=== PATIENT | female | born 1950 | race Caucasian/White ===

== ENCOUNTER 2018-03-17 07:58 | Observation (INO) ==
[2018-03-17] MEDS ORDERED: Gentamicin/NS 80 mg Premix 100 ML IV.SIG ONE (08:50)
--- NOTE | 2018-03-17 08:50 | ED ---
HPI General Chief complaint: Extremity Injury, Lower Stated complaint: Transfer Time Seen by Provider: 03/17/18 08:29 Source: patient Mode of arrival: ambulatory Limitations: no limitations History of Present Illness HPI narrative: Patient is a 67 year old female who comes in as a transfer from [facility] for a partial amputation of he right third toe. She says she accidently closed her foot in a heavy door. XR performed at [facility] showed laceration and multiple fractures of the toe. She was transferred here to be seen by podiatry. She denies any other injuries. She says she is not having pain currently. Severity is moderate. Related Data Home Medications Medication Instructions Recorded Confirmed aspirin [Aspirin Childrens] 81 mg QAM 03/17/18 03/17/18 baclofen 10 mg PO BID 03/17/18 03/17/18 bupropion HCl [Wellbutrin XL] 300 mg PO QAM 03/17/18 03/17/18 carvedilol 6.25 mg PO BID 03/17/18 03/17/18 fluoxetine [Prozac] 40 mg PO DAILY 03/17/18 03/17/18 furosemide 40 mg PO DAILY 03/17/18 03/17/18 gabapentin 600 mg PO TID 03/17/18 03/17/18 insulin admin supplies [HumaPen 03/17/18 03/17/18 Luxura HD] losartan 50 mg PO DAILY 03/17/18 03/17/18 metformin 1,000 mg PO BID 03/17/18 03/17/18 potassium chloride 20 meq PO BID 03/17/18 03/17/18 Allergies Allergy/AdvReac Type Severity Reaction Status Date / Time azithromycin Allergy Severe Rash Verified 03/17/18 09:18 Fish Containing Products Allergy Severe Anaphylaxis Verified 03/17/18 09:18 iohexol Allergy Severe Hives Verified 03/17/18 09:18 povidone-iodine Allergy Severe Hives Verified 03/17/18 09:18 prochlorperazine Allergy Severe Anxiety Verified 03/17/18 09:18 lorazepam AdvReac Severe OPPOSITE Verified 03/17/18 09:18 EFFECT DYE Allergy Severe Hives Uncoded 03/17/18 09:28 Review of Systems ROS: all other systems reviewed are negative Constitutional Denies chills and Denies fever(s) ENT Denies dizziness Cardiovascular Denies chest pain and Denies dyspnea Respiratory Denies cough Gastrointestinal Denies nausea and Denies vomiting Musculoskeletal Reports deformity Integumentary/Breasts Reports wounds Neurologic Denies focal weakness and Denies numbness PMFSH Social History Social History Substance History: No History of Abuse Smoking Status: Current every day smoker Tobacco Type: Cigarettes How Often Do You Have a Drink Containing Alcohol: Never Recent Out of Country Travel within the Last 8 Weeks: No Exam Narrative Exam Narrative: GENERAL: Awake and alert, in no acute distress. SKIN: Avulsion of the tip of the right third toe, still attached anteriorly. HEAD: Atraumatic. Normocephalic. EYES: Pupils equal and round. No scleral icterus. ENT: Mucous membranes pink and moist. NECK: Trachea midline. No JVD. CARDIOVASCULAR: Regular rate and rhythm. No murmur appreciated. RESPIRATORY: No accessory muscle use. Clear to auscultation. Breath sounds equal bilaterally. MUSCULOSKELETAL: No obvious deformities. No clubbing. No cyanosis. No edema. NEUROLOGICAL: Awake and alert. No obvious cranial nerve deficits. Motor grossly within normal limits. Normal speech. PSYCHIATRIC: Appropriate mood and affect; insight and judgment normal. Course Initial Documented Vital Signs Temperature 98.2 F 03/17/18 08:09 Pulse Rate 97 H 03/17/18 08:09 Respiratory Rate 16 03/17/18 08:09 Blood Pressure 181/75 H 03/17/18 08:09 Pulse Oximetry 96 03/17/18 08:09 Last Documented Vital Signs Temperature 98.2 F 03/17/18 08:09 Pulse Rate 94 H 03/17/18 09:29 Respiratory Rate 16 03/17/18 09:29 Blood Pressure 165/96 H 03/17/18 09:29 Pulse Oximetry 94 L 03/17/18 09:29 Medical Decision Making MDM Narrative Medical decision making narrative: Patient is a 67-year-old female who comes in after closing her foot in the door. She was transferred here for podiatry. I spoke with Dr. Padgett who is aware of the patient and she will take her to the OR to wash out her toe. Patient was supposed to receive gentamicin before transport, but did not. This was ordered here. Patient says she does not need pain medicine at this time. Labs were done prior to transfer, show no acute abnormalities other than elevated glucose. Patient admitted to same-day surgery. Medical Screen Exam Complete: Yes Emergency Medical Condition: Yes Differential Diagnosis Differential Diagnosis: Fracture versus dislocation versus avulsion Medical Records Medical records reviewed: Yes I reviewed the patient's medical records. Discharge Plan Discharge Disposition Patient Disposition: 30 Still Patient Discharge Condition Condition: Stable Discharge Details Diagnosis: Avulsion of toe Physicians Team ED Provider: Rosy Singer Attending Provider: Rosy Padgett Discharge Interventions Interventions: Vital Signs Last Done: 03/17/18 09:29 Status ED Status: With Doctor
[2018-03-17] MEDS ORDERED: Bupivacaine PF 0.25% Inj 30 ML Vial ONE (12:09)
[2018-03-17] MEDS ORDERED: Chlorhexidine Gluconate 2% 1 Pack (2 Cloths) TOPICAL ONE (12:22)
[2018-03-17] MEDS ORDERED: Metoprolol Tartrate 25 MG Tablet PO ONE (12:22)
[2018-03-17] MEDS ORDERED: Sodium Chlor 0.9% Inj 500 ML IV.SIG SCH (13:00)
[2018-03-17] MEDS ORDERED: ceFAZolin 2 GM Premix Inj 2 GM/50 ML PIGGYBACK IV.SIG ONE (13:32)
[2018-03-17] MEDS ORDERED: Lidocaine PF 1% Inj 5 ML Syringe OTHER ONE (13:40)
--- NOTE | 2018-03-17 13:49 | P.CONPOD ---
History of Present Illness Service: Foot and Ankle Surgery Consult date: 03/17/18 Primary Care Provider: [facility] Chief Complaint: Right third digit open fracture History of Present Illness: Podiatry consulted for this 67 year old female who comes in as a transfer from [facility] for a partial amputation of he right third toe. She says she accidently closed her foot in a heavy door. She states she is a diabetic and a smoker. She follows with a nurse's assistant at the [place] and would like to follow up with her nurse's assistant once discharged. XR performed at [facility] showed laceration and comminuted fracture of distal phalanx. She denies any other injuries. She says she is not having pain currently, states she is neuropathic. Review of Systems Constitutional: Denies chills, Denies fatigue, Denies fever(s), Denies night sweats Cardiovascular: Denies chest pain, Denies shortness of breath PMFSH - History History Provided By: Patient - Tobacco History Tobacco Use In Past 30 Days: Yes Smoking Status: Current every day smoker Tobacco Type: Cigarettes - Alcohol History How Often Do You Have a Drink Containing Alcohol: Never - Substance Use History Substance History: No History of Abuse - Travel History Recent Travel Out of the Country Within the Last 8 Weeks: No - Immunization History Tetanus Immunization: <5 Years Medications and Allergies Active Medications: Active Medications Lactated Ringer's (Lr 1000 Ml Inj) 1,000 mls @ 30 mls/hr IV.SIG .Q24H NOHEMI Stop: 03/18/18 12:29 Sodium Chloride (Ns Inj) 500 mls @ 30 mls/hr IV.SIG .Q10H NOHEMI Allergies Allergy/AdvReac Type Severity Reaction Status Date / Time azithromycin Allergy Severe Rash Verified 03/17/18 09:18 Fish Containing Products Allergy Severe Anaphylaxis Verified 03/17/18 09:18 iohexol Allergy Severe Hives Verified 03/17/18 09:18 povidone-iodine Allergy Severe Hives Verified 03/17/18 09:18 prochlorperazine Allergy Severe Anxiety Verified 03/17/18 09:18 ketorolac [From Toradol] Allergy Rash Verified 03/17/18 12:36 lorazepam AdvReac Severe OPPOSITE Verified 03/17/18 09:18 EFFECT DYE Allergy Severe Hives Uncoded 03/17/18 09:28 Home Medications Medication Instructions Recorded Confirmed Type aspirin [Aspirin Childrens] 81 mg QAM 03/17/18 03/17/18 History baclofen 10 mg PO BID 03/17/18 03/17/18 History bupropion HCl [Wellbutrin XL] 300 mg PO QAM 03/17/18 03/17/18 History carvedilol 6.25 mg PO BID 03/17/18 03/17/18 History fluoxetine [Prozac] 40 mg PO DAILY 03/17/18 03/17/18 History furosemide 40 mg PO DAILY 03/17/18 03/17/18 History gabapentin 600 mg PO TID 03/17/18 03/17/18 History insulin admin supplies [HumaPen 03/17/18 03/17/18 History [facility]ura HD] losartan 50 mg PO DAILY 03/17/18 03/17/18 History metformin 1,000 mg PO BID 03/17/18 03/17/18 History potassium chloride 20 meq PO BID 03/17/18 03/17/18 History Physical Exam Vital signs: Vital Signs 03/17/18 08:09 03/17/18 09:29 03/17/18 11:34 Temperature 98.2 F Pulse Rate 97 H 94 H 95 H Respiratory Rate 16 16 16 Blood Pressure 181/75 H 165/96 H 175/76 H Pulse Oximetry 96 94 L 94 L Intake & Output 03/16/18 03/17/18 03/17/18 18:59 06:59 18:59 Intake Total 100 / 100 Balance 100 / 100 Weight 122.47 kg Intake: IV 100 / 100 Gentamicin/NS 80 mg Premix 100 100 / 100 ML @ 200 mls/hr IV.SIG ONCE ONE Rx#:[id number] Other: # Incontinent Voids 1 Narrative: Right third digit laceration noted circumferentially around the distal aspect of DIPJ of right third digit. Non palpable DP/PT pulses. MEMBER SERVICE SPECIALIST under 3 secs to digits x4. Decreased MEMBER SERVICE SPECIALIST to right third digit however no cyanosis noted. Decreased pinpoint sensation noted to right foot. Results - Labs Laboratory Results - last 24 hr 03/17/18 03/17/18 10:18 13:23 POC Glucose 318 H 300 H Assessment and Plan - Plan 67 year old with right third digit open distal phalanx comminuted fracture Patient examined and evaluated Understands all risks, benefits, complications, alternatives associated with procedure ABIs to be performed after surgical intervention Discharge dependent on ABIs, if abnormal patient will need a vascular consult Weight bearing as tolerated in surgical shoe Discharge on oral abx therapy Patient to follow up within 1 week of discharge
[2018-03-17] MEDS ORDERED: fentaNYL Citrate Inj 100 MCG/2 ML Ampul ONE (14:49)
[2018-03-17] MEDS ORDERED: Misc Info for Pharmacy OTHER STA (14:53)
--- NOTE | 2018-03-17 15:18 | P.PCN ---
Date of procedure: 03/17/18 Pre-op diagnosis: Right third digit distal phalanx open fracture with laceration Post-op diagnosis: same Procedure: Debridement and irrigation of right third digit open fracture with laceration repair Anesthesia: AGNES Surgeon: Rosy Padgett Estimated blood loss (mL): 5 Pathology: other (wound culture right third digit) Condition: stable Disposition: PACU (with VSS and NVS intact to the right foot)
--- NOTE | 2018-03-17 16:32 | ECHRPT ---
EXAM DATE: 03/17/2018 12:00 AM EDT AGE/SEX: 67 years / Female INDICATIONS: AVULSION OF THE TIP OF THE RIGHT TOE CLINICAL DATA: This is the patient's initial encounter. Patient reports that signs and symptoms have been present for 4 - 6 days and indicates a pain score of 5/10. MEDICAL/SURGICAL HISTORY: . UNKNOWN . UNKNOWN COMPARISON: No prior exams available for comparison. TECHNIQUE: Four-cuff ankle and brachial pressures were obtained. Pulse cuff waveform tracings of the ankles were recorded, and ankle-brachial indices were calculated. PRESSURES (mmHg): Brachial (arm) : RIGHT: 122, LEFT: 120 Ankle : RIGHT: 76, LEFT: 82 WILLIAMS : RIGHT: 0.62, LEFT: 0.67 TBI : RIGHT: 0.53, LEFT: 0.45 FINDINGS: Pulsed-Cuff Waveform: Blunted monophasic tracings bilaterally Other: None. CONCLUSION: Moderately compromised lower extremity circulation bilaterally Electronically signed by: Marv Buck MD 03/17/2018 4:31 PM EDT
--- NOTE | 2018-03-17 17:29 | MR ---
cc: Rosy Padgett DPM DATE: 03/17/2018 SURGEON: Rosy Padgett DPM WILDLIFE BIOSTATION RESEARCH ECOLOGIST: None. PREOPERATIVE DIAGNOSIS: Right third digit open distal phalanx fracture. POSTOPERATIVE DIAGNOSIS: Right third digit open distal phalanx fracture. PROCEDURE: Right third digit open fracture debridement and irrigation with laceration repair. ANESTHESIA: General. HEMOSTASIS: None. ANESTHESIA: IV sedation. HEMOSTASIS: None. ESTIMATED BLOOD LOSS: 5 mL. MATERIALS: 3-0 Monocryl, 3-0 Prolene. INJECTABLES: 10 mL of 0.5% Marcaine plain infiltrated about the right foot. COMPLICATIONS: None. INDICATIONS FOR PROCEDURE: The patient is a 67-year-old female who got her toe caught in between a door and her wheelchair. She said she is not in a lot of pain secondary to neuropathy. She is a smoker and a diabetic. The patient states she follows closely with the [facility] in [facility]. She denies any nausea, vomiting, fevers or chills. She states she reported immediately to the emergency department when she noted her toe was partially amputated. She understands the risks, benefits, and complications associated with proceeding with intervention. DETAILS OF PROCEDURE: The patient was brought to the operating room, placed on the operating table in supine position. IV sedation was then induced. Right foot was prepped and draped in the usual sterile fashion. Attention was directed to the right third digit where 3 liters of normal saline with gentamicin was utilized to irrigate the wound. Cultures were taken post-irrigation. 3-0 Monocryl was utilized to reapproximate subcutaneous tissue. 2-0 Prolene was utilized to reapproximate the skin. Xeroform, 4 x 4's, Riley and Coban were then applied to the right foot. The patient tolerated the procedure and anesthesia well. She remained weightbearing as tolerated to the right foot. We will obtain ABIs prior to discharge. The patient did have nonpalpable pulses. The patient is not to be discharged if ABIs are abnormal. ANGEL Ayala/dia , 04:28 PM , 04:35 PM
--- NOTE | 2018-03-17 17:56 | XR ---
EXAM DATE: 03/17/2018 12:00 AM EDT AGE/SEX: 67 years / Female INDICATIONS: Post op right foot surgery. CLINICAL DATA: This is the patient's initial encounter. Patient reports that signs and symptoms have been present for 1 day and indicates a pain score of 4/10. MEDICAL/SURGICAL HISTORY: None. None. COMPARISON: No prior exams available for comparison. FINDINGS: The tuft of the third toe distal phalanx appears fractured. There are no other focal bony abnormaliti es identified. The mineralization is normal. Articulations appear intact. The hindfoot and visualized ankle are grossly unremarkable. CONCLUSION: Deformity of the third toe tuft as described. Electronically signed by: Marv Buck MD 03/17/2018 5:55 PM EDT
[2018-03-17] MEDS ORDERED: Insulin NovoLIN Regular Correctional Sugar Inj ONE (17:57)
[2018-03-17] MEDS ORDERED: Dextrose 50% in Water 50 ML Vial IV.PUSH PRN (20:22)
--- NOTE | 2018-03-17 20:57 | P.HPIM ---
History of Present Illness Service: [facility] Primary Care Physician: [facility] Chief Complaint: Right third digit open fracture History of Present Illness: 67 y/o female with DM, CHF, neuropathy, COPD, breast cancer, depression and hypertension presented to the ED after having a right third digit toe injury. Patient was taken to the OR for a right third digit open fracture by podiatry. She states she was in her wheelchair today and when she opened a door her toe got caught between the door and the wheelchair. She fever, chills. She does complain of some shortness of breath, she currently is still a and uses BiPAP and nebulizers at home. Is also wheelchair-bound and has been for 20 years. Inpatient Certification: I certify that the inpatient services were ordered in accordance with Medicare regulations governing the order. This includes certification that hospital inpatient services are reasonable and necessary and in the case of services not specified as inpatient-only under 42 CFR 419.22(n), that they are appropriately provided as inpatient services in accordance to with the 2-midnight benchmark under 43 CFR 412.3(e) Estimated Total Length of Stay (Days): 2 Plans for Post Hospital Care: Not yet determined Review of Systems All other systems reviewed negative except as stated [facility] - History History Provided By: Patient - Medical History Medical History: Medical History (Last Reviewed 03/18/18 @ 01:56 by JILLIAN Lopez) CHF (congestive heart failure) COPD (chronic obstructive pulmonary disease) Diabetes H/O: hysterectomy Hypertension Sleep apnea - Surgical History Surgical History: Surgical History (Last Reviewed 03/18/18 @ 01:56 by JILLIAN Lopez) Benign tumor H/O heart artery stent History of spinal fusion Hx of appendectomy Hx of cholecystectomy Hx of lumpectomy - Family History Family History: Family History (Last Reviewed 03/18/18 @ 01:57 by JILLIAN Lopez) Father Heart disease - Social History I have reviewed the patient's Social History: Yes - Tobacco History Tobacco Use In Past 30 Days: Yes Smoking Status: Current every day smoker Tobacco Type: Cigarettes - Alcohol History How Often Do You Have a Drink Containing Alcohol: Never - Substance Use History Substance History: No History of Abuse - Travel History Recent Travel Out of the Country Within the Last 8 Weeks: No - Immunization History Tetanus Immunization: <5 Years Medications and Allergies Active Medications: Active Medications Baclofen (Lioresal) 10 mg PO BID [facility] Bupropion HCl (Wellbutrin Sr) 300 mg PO DAILY [facility] Carvedilol (Coreg) 6.25 mg PO BID [facility] Dextrose (D50w Vial) 50 ml IV.PUSH UNSCH PRN PRN Reason: PER HYPOGLYCEMIA PROTOCOL Fluoxetine HCl (Prozac) 40 mg PO DAILY NOHEMI Furosemide (Lasix) 40 mg PO DAILY [facility] Gabapentin (Neurontin) 600 mg PO TID NOHEMI Glucagon (Glucagon Inj) 1 mg OTHER PRN PRN PRN Reason: for Hypoglycemia Protocol Lactated Ringer's (Lr 1000 Ml Inj) 1,000 mls @ 30 mls/hr IV.SIG .Q24H NOHEMI Stop: 03/18/18 12:29 Sodium Chloride (Ns Inj) 500 mls @ 30 mls/hr IV.SIG .Q10H NOHEMI Insulin Aspart (Novolog Insulin Correctional Sugar Inj) 0 unit SQ ACHS NOHEMI; Protocol Lactulose (Lactulose Liq) 30 ml PO DAILY PRN PRN Reason: SEVERE CONSITIPATION Losartan Potassium (Cozaar) 50 mg PO DAILY [facility] Metformin HCl (Glucophage) 1,000 mg PO BIDPC NOHEMI Ondansetron HCl (Zofran Odt) 4 mg PO Q6H PRN PRN Reason: NAUSEA OR VOMITING Potassium Chloride (K-Dur) 20 meq PO BID NOHEMI Sodium Chloride (Ns Flush) 2 ml IV.FLUSH BID NOHEMI Sodium Chloride (Ns Flush) 2 ml IV.FLUSH PRN PRN PRN Reason: FLUSH AFTER USING IV ACCESS Allergies Allergy/AdvReac Type Severity Reaction Status Date / Time azithromycin Allergy Severe Rash Verified 03/17/18 09:18 Fish Containing Products Allergy Severe Anaphylaxis Verified 03/17/18 09:18 iohexol Allergy Severe Hives Verified 03/17/18 09:18 povidone-iodine Allergy Severe Hives Verified 03/17/18 09:18 prochlorperazine Allergy Severe Anxiety Verified 03/17/18 09:18 ketorolac [From Toradol] Allergy Rash Verified 03/17/18 12:36 lorazepam AdvReac Severe OPPOSITE Verified 03/17/18 09:18 EFFECT DYE Allergy Severe Hives Uncoded 03/17/18 09:28 Home Medications Medication Instructions Recorded Confirmed Type aspirin [Aspirin Childrens] 81 mg QAM 03/17/18 03/17/18 History baclofen 10 mg PO BID 03/17/18 03/17/18 History bupropion HCl [Wellbutrin XL] 300 mg PO QAM 03/17/18 03/17/18 History carvedilol 6.25 mg PO BID 03/17/18 03/17/18 History fluoxetine [Prozac] 40 mg PO DAILY 03/17/18 03/17/18 History furosemide 40 mg PO DAILY 03/17/18 03/17/18 History gabapentin 600 mg PO TID 03/17/18 03/17/18 History insulin admin supplies [HumaPen 03/17/18 03/17/18 History [facility]ura [facility]] losartan 50 mg PO DAILY 03/17/18 03/17/18 History metformin 1,000 mg PO BID 03/17/18 03/17/18 History potassium chloride 20 meq PO BID 03/17/18 03/17/18 History Exam Vital signs: Vital Signs 03/17/18 08:09 03/17/18 09:29 03/17/18 11:34 Temperature 98.2 F Pulse Rate 97 H 94 H 95 H Respiratory Rate 16 16 16 Blood Pressure 181/75 H 165/96 H 175/76 H Pulse Oximetry 96 94 L 94 L 03/17/18 20:00 Temperature 97.4 F L Pulse Rate 88 Respiratory Rate 15 Blood Pressure 188/87 H Pulse Oximetry 94 L Intake & Output 03/17/18 03/17/18 03/18/18 06:59 18:59 06:59 Intake Total 700 / 700 Output Total 5 / 5 Balance 695 / 695 Weight 122.47 kg Intake: IV 100 / 100 Gentamicin/NS 80 mg Premix 100 100 / 100 ML @ 200 mls/hr IV.SIG ONCE ONE Rx#:[id number] Anesthesia Amount 600 / 600 Output: Estimated Blood Loss 5 / 5 Other: # Incontinent Voids 1 Narrative: GENERAL: This is a well-nourished, well-developed patient, in no apparent distress. SKIN: right third toe wrapped in gauze, minimal drainage EYES: Pupils equal round and reactive, no scleral edema or drainage CARDIOVASCULAR: Regular rate and rhythm without murmurs, gallops, or rubs. Diminished pedal pulses. RESPIRATORY: Clear to auscultation. Breath sounds equal bilaterally. No wheezes , rales, or rhonchi. GASTROINTESTINAL: Abdomen soft, non-tender, nondistended. Normal active bowel sounds MUSCULOSKELETAL: Extremities without clubbing, cyanosis, or edema. NEURO: Alert & Oriented x4 to person, place, time, situation. Moves all ext x4 Results - Imaging Impressions Extremity Arterial Study 03/17/18 00:00 CONCLUSION: Moderately compromised lower extremity circulation bilaterally Foot X-Ray 03/17/18 00:00 CONCLUSION: Deformity of the third toe tuft as described. Caprini VTE Risk Assessment Caprini VTE Risk Assessment: Moderate/High Risk (score >= 2) Caprini Risk Assessment Model: Point Value = 1 Point Value = 2 Point Value = 3 Point Value = 5 Age 41-60 Minor surgery BMI > 25 kg/m2 Swollen legs Varicose veins or History of unexplained or recurrent spontaneous Oral contraceptives or hormone replacement Sepsis (< 1 month) Serious lung disease, including pneumonia (< 1 month) Abnormal pulmonary function Acute myocardial infarction Congestive heart failure (< 1 month) History of inflammatory bowel disease Medical patient at bed rest Age 61-74 Arthroscopic surgery Major open surgery (> 45 min) Laparoscopic surgery (> 45 min) Malignancy Confined to bed (> 72 hours) Immobilizing plaster cast Central venous access Age >= 75 History of VTE Family history of VTE Factor V Leiden Prothrombin [id number] Lupus anticoagulant Anticardiolipin antibodies Elevated serum homocysteine Heparin-induced thrombocytopenia Other congenital or acquired thrombophilia Stroke (< 1 month) Elective arthroplasty Hip, pelvis, or leg fracture Acute spinal cord injury (< 1 month) Prophylaxis Regimen: Total Risk Factor Score Risk Level Prophylaxis Regimen 0-1 Low Early ambulation 2 Moderate Order ONE of the following: *Sequential Compression Device (SCD) *Heparin 5000 units SQ BID 3-4 Higher Order ONE of the following medications: *Heparin 5000 units SQ TID *Enoxaparin/Lovenox 40 mg SQ daily (WT < 150 kg, CrCl > 30 mL/min) *Enoxaparin/Lovenox 30 mg SQ daily (WT < 150 kg, CrCl > 10-29 mL/min) *Enoxaparin/Lovenox 30 mg SQ BID (WT < 150 kg, CrCl > 30 mL/min) AND/OR *Sequential Compression Device (SCD) 5 or more Highest Order ONE of the following medications: *Heparin 5000 units SQ TID (Preferred with Epidurals) *Enoxaparin/Lovenox 40 mg SQ daily (WT < 150 kg, CrCl > 30 mL/min) *Enoxaparin/Lovenox 30 mg SQ daily (WT < 150 kg, CrCl > 10-29 mL/min) *Enoxaparin/Lovenox 30 mg SQ BID (WT < 150 kg, CrCl > 30 mL/min) AND *Sequential Compression Device (SCD) Assessment and Plan - Plan 67 y/o female with DM, CHF, neuropathy, COPD, breast cancer, depression and hypertension presented to the ED after having a right third digit toe injury. Right third digit toe injury Foot x-ray shows a third toe distal phalanx appears fracture -Podiatry was consulted by ER physician and patient was taken to the OR for I&D of right third digit open fracture and laceration repair, recommends postop boot , in 1 week -Vascular surgery consulted due to week pedal pulses -ABIs ordered -Gabapentin for pain Diabetes, chronic -Resume home metformin -Accu-Cheks with sliding scale insulin -Diabetic diet COPD, chronic -DuoNeb scheduled and as needed -Bipap At night Hypertension, chronic -Resume home medications Cozaar and Coreg, monitor vitals Depression, chronic -Resume home medications fluoxetine and Wellbutrin CHF, chronic -Resume Lasix -Watch for fluid overload Tobacco abuse -Encouraged to quit, cessation counseling DVT prophylaxis: SCDs Discussed Condition With: Patient and RN
[2018-03-17] MEDS: Baclofen 10 MG Tablet PO SCH (21:27)
[2018-03-17] MEDS: Carvedilol 6.25 MG Tablet PO SCH (21:27)
[2018-03-17] MEDS: Insulin NovoLOG Aspart Correctional Sugar Inj SQ SCH (21:34)
[2018-03-18] MEDS: Insulin NovoLOG Aspart Correctional Sugar Inj SQ SCH ×4 (09:39→20:39)
[2018-03-18] MEDS: Carvedilol 6.25 MG Tablet PO SCH ×2 (09:40→20:30)
[2018-03-18] MEDS: Baclofen 10 MG Tablet PO SCH ×2 (09:40→20:31)
[2018-03-18] MEDS: buPROPion 150 MG 12 HR Tablet PO SCH (09:41)
[2018-03-18] MEDS: Gabapentin 300 MG Capsule PO SCH ×3 (09:41→16:59)
[2018-03-18] MEDS: Furosemide 40 MG Tablet PO SCH (09:41)
[2018-03-18] MEDS: FLUoxetine 20 MG Capsule PO SCH (09:41)
[2018-03-18] MEDS: Insulin Detemir Inj 1,000 UNIT/10 ML Vial SQ SCH ×2 (09:43→20:37)
--- NOTE | 2018-03-18 11:50 | P.PNIM ---
Subjective Interval history: Patient reports she wants to go home soon. Complained of more back pain which is chronic than her left foot pain. She states that she is usually bedbound and gets around with a wheelchair. She does have chronic neuropathy. Physical Exam Vital signs: Vital Signs 03/17/18 20:00 03/18/18 00:00 03/18/18 00:24 Temperature 97.4 F L 97.3 F L Pulse Rate 88 90 86 Respiratory Rate 15 16 23 Blood Pressure 188/87 H 198/89 H Pulse Oximetry 94 L 94 L 03/18/18 01:10 03/18/18 04:00 03/18/18 07:40 Temperature 97.4 F L Pulse Rate 80 96 H Respiratory Rate 15 20 Blood Pressure 183/79 H Pulse Oximetry 98 94 L 03/18/18 08:00 Temperature 97.7 F Pulse Rate 94 H Respiratory Rate 19 Blood Pressure 201/90 H Pulse Oximetry 93 L Intake & Output 03/17/18 03/18/18 03/18/18 18:59 06:59 18:59 Intake Total 700 / 700 650 / 650 Output Total 5 / 5 1200 / 1200 Balance 695 / 695 -550 / -550 Weight 122.47 kg 122.5 kg Intake: IV 100 / 100 50 / 50 Gentamicin/NS 80 mg Premix 100 100 / 100 ML @ 200 mls/hr IV.SIG ONCE ONE Rx#:[id number] Ancef 2 GM Premix Inj 2 gm In 50 / 50 50 ml @ 0 mls/hr IV.SIG .STK- MED ONE Rx#:[id number] Oral 600 / 600 Anesthesia Amount 600 / 600 Output: Urine 1200 / 1200 Estimated Blood Loss 5 / 5 Other: # Incontinent Voids 1 Date of Last Bowel Movement 03/17/18 # Bowel Movements 2 Narrative: GENERAL: This is a well-nourished, well-developed patient, in no apparent distress. EYES: Pupils equal round and reactive, no scleral edema or drainage CARDIOVASCULAR: Regular rate and rhythm without murmurs, gallops, or rubs. Diminished pedal pulses bilaterally. RESPIRATORY: Clear to auscultation. Breath sounds equal bilaterally. No wheezes , rales, or rhonchi. GASTROINTESTINAL: Abdomen soft, non-tender, nondistended. Normal active bowel sounds MUSCULOSKELETAL: Right foot bandage clean dry and intact NEURO: Alert & Oriented x4 to person, place, time, situation. Moves all ext x4 Results - Labs Laboratory Results - last 24 hr 03/17/18 03/17/18 03/17/18 13:23 17:52 21:34 POC Glucose 300 H 279 H 280 H 03/18/18 08:35 POC Glucose 301 H Microbiology 03/17/18 14:12 Wound - Toe Gram Stain - Final - Imaging Impressions Extremity Arterial Study 03/17/18 00:00 CONCLUSION: Moderately compromised lower extremity circulation bilaterally Foot X-Ray 03/17/18 00:00 CONCLUSION: Deformity of the third toe tuft as described. Assessment and Plan - Assessment (1) Morbid obesity with BMI of 45.0-49.9, adult Code(s): E66.01 - Morbid (severe) obesity due to excess calories; Z68.42 - Body mass index (BMI) 45.0-49.9, adult Status: Chronic - Plan 67 y/o female with DM, CHF, neuropathy, COPD, breast cancer, depression and hypertension presented to the ED after having a right third digit toe injury. Right open third distal phalanx toe fracture status post operative day #1 right third digit open fracture debridement and irrigation with laceration repair with Dr. Padgett, podiatry -Vascular surgery consulted due to week pedal pulses with patient likely having underlying peripheral arterial disease -ABIs ordered -Gabapentin for pain Diabetes mellitus type II, chronic, uncontrolled likely with neuropathy -Resume home metformin -Accu-Cheks with sliding scale insulin -Diabetic diet Start basal insulin Levemir for better blood sugar control. Sliding scale insulin COPD, chronicnot in acute exacerbation -DuoNeb scheduled and as needed History of sleep apnea -Bipap At night Hypertension, chronic, uncontrolled -Resume home medications Cozaar and Coreg, Increase home Cozaar dose from 50-100 mg today. Depression, chronic -Resume home medications fluoxetine and Wellbutrin Chronic diastolic CHF, chronic, EF in August 2014 showed 55% -Resume Lasix, Coreg -Watch for fluid overload Tobacco abuse -Encouraged to quit, cessation counseling Morbid obesity with BMI greater than 45 -weight loss counseling. DVT prophylaxis: Lovenox.
--- NOTE | 2018-03-18 12:02 | P.DCO ---
- Diagnosis (1) Open toe fracture Status: Acute - Physical Therapy Order: Evaluate and treat - Home Health Nursing Order: Nursing assessment with vital signs - Case Management Consult Yes - Certification I have seen patient Sharonda Grubbs on 03/18/18. My clinical findings support the need for the requested home health care services because: Limited mobility due to disease progression I certify that my clinical findings support that this patient is homebound because: Post-op weakness (1) Open toe fracture Qualifiers: Encounter type: initial encounter Phalanx: distal Fracture alignment: nondisplaced Laterality: right
--- NOTE | 2018-03-18 13:08 | P.PNVS ---
Subjective Subjective/Hospital Course: Referral received last night full consult to follow today Thanks J Objective Vital Signs / I&O: Vital Signs 03/17/18 20:00 03/18/18 00:00 03/18/18 00:24 Temperature 97.4 F L 97.3 F L Pulse Rate 88 90 86 Respiratory Rate 15 16 23 Blood Pressure 188/87 H 198/89 H Pulse Oximetry 94 L 94 L 03/18/18 01:10 03/18/18 04:00 03/18/18 07:40 Temperature 97.4 F L Pulse Rate 80 96 H Respiratory Rate 15 20 Blood Pressure 183/79 H Pulse Oximetry 98 94 L 03/18/18 08:00 Temperature 97.7 F Pulse Rate 94 H Respiratory Rate 19 Blood Pressure 201/90 H Pulse Oximetry 93 L Intake & Output 03/17/18 03/18/18 03/18/18 18:59 06:59 18:59 Intake Total 700 / 700 650 / 650 Output Total 5 / 5 1200 / 1200 Balance 695 / 695 -550 / -550 Weight 122.47 kg 122.5 kg Intake: IV 100 / 100 50 / 50 Gentamicin/NS 80 mg Premix 100 100 / 100 ML @ 200 mls/hr IV.SIG ONCE ONE Rx#:[id number] Ancef 2 GM Premix Inj 2 gm In 50 / 50 50 ml @ 0 mls/hr IV.SIG .STK- MED ONE Rx#:[id number] Oral 600 / 600 Anesthesia Amount 600 / 600 Output: Urine 1200 / 1200 Estimated Blood Loss 5 / 5 Other: # Incontinent Voids 1 Date of Last Bowel Movement 03/17/18 # Bowel Movements 2 Laboratory Results - last 24 hr 03/17/18 03/17/18 03/17/18 13:23 17:52 21:34 POC Glucose 300 H 279 H 280 H 03/18/18 03/18/18 08:35 12:41 POC Glucose 301 H 337 H Microbiology 03/17/18 14:12 Gram Stain - Final Wound - Toe Wound Culture - Preliminary No growth in 24 hours Impressions Extremity Arterial Study 03/17/18 00:00 CONCLUSION: Moderately compromised lower extremity circulation bilaterally Foot X-Ray 03/17/18 00:00 CONCLUSION: Deformity of the third toe tuft as described.
--- NOTE | 2018-03-18 17:00 | MB ---
cc: Valerio Bailey MD DATE: 03/18/2018 CONSULTING PHYSICIAN: Valerio Bailey MD, vascular surgery REASON FOR CONSULTATION: Gangrene and infection with fractures of the right third toe, questionable issues with blood supply to the leg. HISTORY OF PRESENT ILLNESS: This is a 67-year-old lady with a complex past medical history, somehow broke the third digit of the right foot. This got infected and the patient underwent amputation of the same by Dr. Padgett. In the process of the workup, patient was found to have multiple medical problems from before. Question arises about the ability for this to heal without any vascular intervention. PAST MEDICAL HISTORY: Severe COPD, CHF, diabetes mellitus, hypertension and spinal stenosis with inability to walk for the last 20 years. PAST SURGICAL HISTORY: Hysterectomy, toe amputation, breast surgery for breast cancer, coronary artery angioplasty and stenting, appendectomy and left lumpectomy. SOCIAL HISTORY: The patient smokes 1-2 packs a day. Most of her adult life. Does not drink. The patient is unable to walk for the last 20 years due to severe spinal stenosis and is essentially wheelchair bound. PHYSICAL EXAMINATION: GENERAL: Reveals 67-year-old lady appearing much older than actual age. HEENT: Normocephalic. No trauma to the head. Pupils are equally reactive. Extraocular muscles intact. The patient has a large pannus overlying the chin. NECK: Short and stocky. Good carotid pulses. No bruits. CHEST: Bilateral breath sounds, decreased over both lung lovell with severe advanced COPD, barrel chest and atrophy of the musculature with pulmonary cachexia of the chest. ABDOMEN: Obese, soft, active bowel sounds. No rebound, no guarding, no masses. EXTREMITIES: Somewhat atrophic. Patient has no palpable femoral pulses, weak popliteal by doppler. Distally patient has dorsalis pedis and posterior tibial by Doppler only. Feet are slightly pale; however, there is no acute sign of vascular deficit. BACK: Not examined because I cannot turn the patient and she cannot turn on her own. NEUROLOGIC: The patient moves lower extremities; however, is unable to walk due to spinal stenosis, functionally she is paraplegic, although she has sensation in the feet. IMPRESSION AND RECOMMENDATIONS: I reviewed laboratory and diagnostic procedure. The patient has warm feet, although pulses are not palpable distally. This is probably associated with moderate distal vascular disease, and significant inflow disease considering the patient has no palpable pulses in the groin. Patient likely has very severe stenosis of the iliac arteries or even may be Leriche syndrome I believe CTA with runoff is an appropriate study at this time to assess the baseline and see if the patient can be helped in any way. Patient is not a candidate for any major vascular reconstruction, but might be a candidate for simple balloon angioplasty and stenting. I will continue to follow the patient with you. MD ANNIE Villarreal/ct , 04:03 PM , 04:14 PM MTDD
[2018-03-18 19:08] LABS: Hematocrit 45.9 % (35.0-46.0); Hemoglobin 14.9 gm/dL (11.6-15.3); Mean Corpuscular HGB Conc 32.4 % (32.0-36.0); Mean Corpuscular Hemoglobin 26.2 pg (27.0-34.0); Mean Corpuscular Volume 80.7 fL (80.0-100.0); Mean Platelet Volume 9.6 fL (7.0-11.0); Platelet Count 264 th/mm3 (150-450); Red Blood Count 5.69 mil/mm3 (4.00-5.30); Red Cell Distribution Width 15.7 % (11.6-17.2); White Blood Count 15.1 th/mm3 (4.0-11.0)
[2018-03-18 19:30] LABS: Carbon Dioxide 25.7 meq/L (21.0-32.0); Potassium 3.9 meq/L (3.5-5.1)
--- NOTE | 2018-03-18 21:21 | P.PNPOD ---
Subjective Interval history: Patient seen bedside post op day 1. Resting comfortably with no issues or complaints. Deneis calf pain to right calf. Denies any N,V,F,Ch. Physical Exam Vital signs: Vital Signs 03/18/18 00:00 03/18/18 00:24 03/18/18 01:10 Temperature 97.3 F L Pulse Rate 90 86 Respiratory Rate 16 23 Blood Pressure 198/89 H Pulse Oximetry 94 L 98 03/18/18 04:00 03/18/18 07:40 03/18/18 08:00 Temperature 97.4 F L 97.7 F Pulse Rate 80 96 H 94 H Respiratory Rate 15 20 19 Blood Pressure 183/79 H 201/90 H Pulse Oximetry 94 L 93 L 03/18/18 11:00 03/18/18 12:00 03/18/18 16:00 Temperature 97.9 F 98.0 F Pulse Rate 95 H 95 H 98 H Respiratory Rate 20 18 18 Blood Pressure 164/83 H 188/87 H Pulse Oximetry 94 L 95 03/18/18 18:57 Temperature Pulse Rate 101 H Respiratory Rate 18 Blood Pressure Pulse Oximetry Intake & Output 03/18/18 03/18/18 03/19/18 06:59 18:59 06:59 Intake Total 650 / 650 1000 / 1000 Output Total 1200 / 1200 Balance -550 / -550 1000 / 1000 Weight 122.5 kg Intake: IV 50 / 50 Ancef 2 GM Premix Inj 2 gm In 50 / 50 50 ml @ 0 mls/hr IV.SIG .STK- MED ONE Rx#:[id number] Oral 600 / 600 1000 / 1000 Output: Urine 1200 / 1200 Other: # Voids 6 Date of Last Bowel Movement 03/17/18 # Bowel Movements 2 3 Narrative: [employer] MANAGER under 5 secs to right third digit. [employer] MANAGER under 3 secs to right foot digits 1,2 ,4,5. Non palpable pulses DP/PT. Delayed and sluggish refill time to right third digit, however no cyanosis noted or ischemia noted. Medications and Allergies Active Medications: Active Medications Albuterol (Duoneb Neb (Prn)) 1 ampul NEB Q2HR NEB PRN PRN Reason: SHORTNESS OF BREATH Last Admin: 03/18/18 00:20 Dose: 1 ampul Albuterol (Duoneb Neb (Anup)) 1 ampul NEB Q6HR WHILE AWAKE NEB ANUP Last Admin: 03/18/18 18:55 Dose: 1 ampul Baclofen (Lioresal) 10 mg PO BID [facility] Last Admin: 03/18/18 20:31 Dose: 10 mg Bupropion HCl (Wellbutrin Sr) 300 mg PO DAILY [facility] Last Admin: 03/18/18 09:41 Dose: 300 mg Carvedilol (Coreg) 6.25 mg PO BID [facility] Last Admin: 03/18/18 20:30 Dose: 6.25 mg Clonidine HCl (Catapres) 0.1 mg PO Q6H PRN PRN Reason: SEE LABEL COMMENTS Last Admin: 03/18/18 17:10 Dose: 0.1 mg Dextrose (D50w Vial) 50 ml IV.PUSH UNSCH PRN PRN Reason: PER HYPOGLYCEMIA PROTOCOL Fluoxetine HCl (Prozac) 40 mg PO DAILY [facility] Last Admin: 03/18/18 09:41 Dose: 40 mg Furosemide (Lasix) 40 mg PO DAILY [facility] Last Admin: 03/18/18 09:41 Dose: 40 mg Gabapentin (Neurontin) 600 mg PO TID [facility] Last Admin: 03/18/18 16:59 Dose: 600 mg Glucagon (Glucagon Inj) 1 mg OTHER PRN PRN PRN Reason: for Hypoglycemia Protocol Sodium Chloride (Ns Inj) 500 mls @ 30 mls/hr IV.SIG .Q10H [facility] Last Admin: 03/17/18 21:29 Dose: Not Given Insulin Aspart (Novolog Insulin Correctional Sugar Inj) 0 unit SQ ACHS [facility]; Protocol Last Admin: 03/18/18 20:39 Dose: 12 unit Insulin Detemir (Levemir Inj) 15 unit SQ BID [facility]; Protocol Last Admin: 03/18/18 20:37 Dose: 15 unit Lactulose (Lactulose Liq) 30 ml PO DAILY PRN PRN Reason: SEVERE CONSITIPATION Losartan Potassium (Cozaar) 100 mg PO DAILY [facility] Last Admin: 03/18/18 16:59 Dose: 1,000 mg Ondansetron HCl (Zofran Odt) 4 mg PO Q6H PRN PRN Reason: NAUSEA OR VOMITING Potassium Chloride (K-Dur) 20 meq PO BID [facility] Last Admin: 03/18/18 20:30 Dose: 20 meq Sodium Chloride (Ns Flush) 2 ml IV.FLUSH BID [facility] Last Admin: 03/18/18 20:48 Dose: 2 ml Sodium Chloride (Ns Flush) 2 ml IV.FLUSH PRN PRN PRN Reason: FLUSH AFTER USING IV ACCESS Allergies Allergy/AdvReac Type Severity Reaction Status Date / Time azithromycin Allergy Severe Rash Verified 03/17/18 09:18 Fish Containing Products Allergy Severe Anaphylaxis Verified 03/17/18 09:18 iohexol Allergy Severe Hives Verified 03/17/18 09:18 povidone-iodine Allergy Severe Hives Verified 03/17/18 09:18 prochlorperazine Allergy Severe Anxiety Verified 03/17/18 09:18 ketorolac [From Toradol] Allergy Rash Verified 03/17/18 12:36 lorazepam AdvReac Severe OPPOSITE Verified 03/17/18 09:18 EFFECT DYE Allergy Severe Hives Uncoded 03/17/18 09:28 Home Medications Medication Instructions Recorded Confirmed Type aspirin [Aspirin Childrens] 81 mg QAM 03/17/18 03/17/18 History baclofen 10 mg PO BID 03/17/18 03/17/18 History bupropion HCl [Wellbutrin XL] 300 mg PO QAM 03/17/18 03/17/18 History carvedilol 6.25 mg PO BID 03/17/18 03/17/18 History fluoxetine [Prozac] 40 mg PO DAILY 03/17/18 03/17/18 History furosemide 40 mg PO DAILY 03/17/18 03/17/18 History gabapentin 600 mg PO TID 03/17/18 03/17/18 History insulin admin supplies [HumaPen 03/17/18 03/17/18 History Luxura HD] losartan 50 mg PO DAILY 03/17/18 03/17/18 History metformin 1,000 mg PO BID 03/17/18 03/17/18 History potassium chloride 20 meq PO BID 03/17/18 03/17/18 History Results - Labs CBC & Chem 7: 03/18/18 18:20 03/18/18 18:20 Laboratory Results - last 24 hr 03/17/18 03/18/18 03/18/18 21:34 08:35 12:41 WBC RBC Hgb Hct MCV MCH MCHC RDW Plt Count MPV Sodium Potassium Chloride Carbon Dioxide Anion Gap BUN Creatinine Estimated GFR POC Glucose 280 H 301 H 337 H Random Glucose Calcium 03/18/18 03/18/18 03/18/18 17:02 18:20 18:20 WBC 15.1 H RBC 5.69 H Hgb 14.9 Hct 45.9 MCV 80.7 MCH 26.2 L MCHC 32.4 RDW 15.7 Plt Count 264 MPV 9.6 Sodium 132 L Potassium 3.9 Chloride 96 L Carbon Dioxide 25.7 Anion Gap 10 BUN 11 Creatinine 0.89 Estimated GFR 63 L POC Glucose 291 H Random Glucose 268 H Calcium 9.0 03/18/18 20:31 WBC RBC Hgb Hct MCV MCH MCHC RDW Plt Count MPV Sodium Potassium Chloride Carbon Dioxide Anion Gap BUN Creatinine Estimated GFR POC Glucose 390 H Random Glucose Calcium Microbiology 03/17/18 14:12 Wound - Toe Fungal Smear - Final No fungal elements seen 03/17/18 14:12 Wound - Toe Gram Stain - Final 03/17/18 14:12 Wound - Toe Wound Culture - Preliminary No growth in 24 hours Assessment and Plan - Plan 67 year old with right third digit open distal phalanx comminuted fracture Patient examined and evaluated ABIs abnormal and vascualr surgery is evaluating patient Weight bearing as tolerated in surgical shoe Discharge on oral abx therapy Patient to follow up within 1 week of discharge Will continue to monitor vascular status of right third toe
[2018-03-19 07:31] LABS: Baso # (Auto) 0.1 th/mm3 (0.0-0.2); Baso % (Auto) 0.6 % (0.0-2.0); Eos % (Auto) 0.2 % (0.0-4.0); Hematocrit 45.3 % (35.0-46.0); Hemoglobin 14.9 gm/dL (11.6-15.3); Lymph # (Auto) 1.1 th/mm3 (1.0-4.8); Lymph % (Auto) 9.2 % (9.0-44.0); Mean Corpuscular HGB Conc 32.9 % (32.0-36.0); Mean Corpuscular Hemoglobin 26.6 pg (27.0-34.0); Mean Corpuscular Volume 80.8 fL (80.0-100.0); Mean Platelet Volume 9.7 fL (7.0-11.0); Mono # (Auto) 0.3 th/mm3 (0.0-0.9); Mono % (Auto) 2.3 % (0.0-8.0); Neut # (Auto) 10.1 th/mm3 (1.8-7.7); Neut % (Auto) 87.7 % (16.0-70.0); Platelet Count 230 th/mm3 (150-450); Red Blood Count 5.61 mil/mm3 (4.00-5.30); Red Cell Distribution Width 15.9 % (11.6-17.2); White Blood Count 11.5 th/mm3 (4.0-11.0)
[2018-03-19 07:43] LABS: Calcium 9.1 mg/dL (8.5-10.1); Carbon Dioxide 22.6 meq/L (21.0-32.0); Potassium 5.1 meq/L (3.5-5.1)
[2018-03-19] MEDS: Insulin NovoLOG Aspart Correctional Sugar Inj SQ SCH ×4 (08:00→22:15)
[2018-03-19] MEDS: FLUoxetine 20 MG Capsule PO SCH (08:09)
[2018-03-19] MEDS: Carvedilol 6.25 MG Tablet PO SCH ×2 (08:09→22:14)
[2018-03-19] MEDS: Gabapentin 300 MG Capsule PO SCH ×4 (08:10→22:14)
[2018-03-19] MEDS: buPROPion 150 MG 12 HR Tablet PO SCH (08:10)
[2018-03-19] MEDS: Furosemide 40 MG Tablet PO SCH (08:10)
[2018-03-19] MEDS: Baclofen 10 MG Tablet PO SCH ×2 (10:00→22:14)
--- NOTE | 2018-03-19 10:48 | CT ---
EXAM DATE: 03/19/2018 8:41 AM EDT AGE/SEX: 67 years / Female INDICATIONS: Peripheral vascular disease to both legs. Gangrene toe. CLINICAL DATA: This is the patient's initial encounter. Patient reports that signs and symptoms have been present for 1 day and indicates a pain score of 5/10. MEDICAL/SURGICAL HISTORY: Chronic obstructive pulmonary disease. Congestive heart failure. Hypert ension. Diabetes. Appendectomy. Cholecystectomy. Hysterectomy. Heart artery stent. RADIATION DOSE: 40.25 CTDI (mGy) COMPARISON: [facility] [place], [employer] ANKLE BRACHIAL INDEX, 03/17/2018. . TECHNIQUE: Volumetric scanning was performed using a multi-row detector CT scanner during bolus infu robbie of 95 ml Omnipaque 350 (iohexol) nonionic water-soluble contrast as a single exam dose. The d cyndy was post processed with a variety of visualization algorithms including full volume maximum inten sity projection, multi-planar sliding thin slab reformation, curved planar reformation, and surface r endering techniques. Using automated exposure control and adjustment of the mA and/or kV according t o patient size, radiation dose was kept as low as reasonably achievable to obtain optimal diagnostic quality images. DICOM format image data is available electronically for review and comparison. FINDINGS: Abdominal Aorta: Atherosclerotic calcification throughout the infrarenal abdominal aorta without aneu rysmal disease. Single bilateral renal arteries are patent. Mesenteric vessels are patent. The distal aorta is heavily calcified and occludes at the bifurcation Pelvis: Common iliac arteries are occluded bilaterally. Collateral reconstitution of the external lorena acs via the hypogastrics. Right Lower Extremity: Profunda and SFA are patent with some mild irregularity of the SFA. Popliteal is patent and trifurcation with three-vessel runoff Left Lower Extremity: Profunda and SFA are patent. Mild irregularity at the adductor hiatus but the p opliteal is patent and the trifurcation. Trifurcation vessels can be identified in the mid calf but a re not very well-seen distally probably due to the limited inflow. I believe all 3 trifurcation vesse ls are patent, however Miscellaneous: Patient is status post cholecystectomy. There is prior abdominal surgery with surgical butch identified at the rectus abdominis aponeurosis. A left para midline anterior abdominal wall hernia is identified just above the umbilicus. This measures 5.7 cm in diameter and only contains fat . 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 Multiple injection granulomata in the buttocks bilaterally. There is findings of prior lumbosacral surgery with a probable bony fus ion mass in the posterior elements leftward CONCLUSION: 1. Patient's symptoms appear to be due to a Leriche type syndrome with occlusion of the distal abdom inal aorta just above the bifurcation extending into the common iliac arteries bilaterally. 2. There is collateral reconstitution of the external iliac arteries bilaterally. Except for some mi ld atherosclerotic irregularity in the SFA/popliteal, the runoff vessels are otherwise patent with 3 vessels bilaterally. 3. (Midline anterior abdominal wall hernia measures 5.7 cm in diameter and only contains fat. This i s adjacent to a prior surgical incision 6. With metallic butch in the region of the rectus abdomini s aponeurosis. 4. Prior back surgery with multilevel resection of the spinous processes in the lower lumbar and upp er sacral spine. Probable bony fusion mass leftward in the posterior elements at L4-5. Patient is sta tus post cholecystectomy. Electronically signed by: Rick Arellano MD 03/19/2018 10:46 AM EDT
--- NOTE | 2018-03-19 11:05 | P.DS ---
Date of admission: 03/17/18 18:38 Primary care physician: [facility] Brief History from admission: 67 y/o female with DM, CHF, neuropathy, COPD, breast cancer, depression and hypertension presented to the ED after having a right third digit toe injury. Patient was taken to the OR for a right third digit open fracture by podiatry. She states she was in her wheelchair today and when she opened a door her toe got caught between the door and the wheelchair. She fever, chills. She does complain of some shortness of breath, she currently is still a and uses BiPAP and nebulizers at home. Is also wheelchair-bound and has been for 20 years. Patient update on day of discharge: Patient states no pain. Wants to go home. No abdominal pain. Tolerating diet. DS: Diagnosis - Discharge Diagnosis (1) Open toe fracture Status: Acute Diagnosis: Principal (2) Morbid obesity with BMI of 45.0-49.9, adult Status: Chronic Diagnosis: Secondary (3) Diabetes mellitus type 2 in obese Status: Chronic Diagnosis: Secondary DS: Summary Hospital Course: These are the medical issues addressed during this hospitalization: 67 y/o female with DM, CHF, neuropathy, COPD, breast cancer, depression and hypertension presented to the ED after having a right third digit toe injury. Right open third distal phalanx toe fracture status post operative day #2 right third digit open fracture debridement and irrigation with laceration repair with Dr. Padgett, podiatry Outpatient antibiotics per podiatry. -Vascular surgery consulted due to weak pedal pulses with patient likely having underlying peripheral arterial disease -ABIs ordered CTA runoff results revealed occlusion of the distal abdominal aorta just above the verification into the common iliac arteries bilaterally and there is collateral reconstitution of the external iliac arteries bilaterally. Patient to follow-up with primary care physician at the [facility]. Continue home aspirin. -Gabapentin for pain Diabetes mellitus type II, chronic, uncontrolled likely with neuropathy -Resume home metformin -Accu-Cheks with sliding scale insulin -Diabetic diet Start basal insulin Levemir for better blood sugar control. Sliding scale insulin COPD, chronicnot in acute exacerbation -DuoNeb scheduled and as needed History of sleep apnea -Bipap At night Hypertension, chronic, uncontrolled -Resume home medications Cozaar and Coreg, Increase home Cozaar dose from 50-100 mg today. New prescription will be given on discharge. Depression, chronic -Resume home medications fluoxetine and Wellbutrin Chronic diastolic CHF, chronic, EF in August 2014 showed 55% -Resume Lasix, Coreg -Watch for fluid overload Tobacco abuse -Encouraged to quit, cessation counseling Morbid obesity with BMI greater than 45 -weight loss counseling. DVT prophylaxis: Lovenox. - Time Spent with Patient Total time spent providing and/or coordinating discharge services: Less than 30 minutes - Quality: VTE Deep Vein Thrombosis/Pulmonary Embolism Present on Admission: No Exam Vital signs: Vital Signs 03/18/18 11:00 03/18/18 12:00 03/18/18 16:00 Temperature 97.9 F 98.0 F Pulse Rate 95 H 95 H 98 H Respiratory Rate 20 18 18 Blood Pressure 164/83 H 188/87 H Pulse Oximetry 94 L 95 03/18/18 18:57 03/18/18 20:00 03/18/18 21:30 Temperature 97.6 F Pulse Rate 101 H 100 H Respiratory Rate 18 17 Blood Pressure 141/66 H Pulse Oximetry 95 94 L 03/19/18 00:00 03/19/18 00:42 03/19/18 03:47 Temperature 97.9 F Pulse Rate 88 Respiratory Rate 16 Blood Pressure 125/64 Pulse Oximetry 94 L 93 L 97 03/19/18 07:51 03/19/18 08:25 Temperature 97.8 F Pulse Rate 96 H 90 Respiratory Rate 17 12 Blood Pressure 158/72 H Pulse Oximetry 98 Intake & Output 03/18/18 03/19/18 03/19/18 18:59 06:59 18:59 Intake Total 1000 / 1000 500 / 500 Output Total 600 / 600 Balance 1000 / 1000 -100 / -100 Weight 122.2 kg Intake: Oral 1000 / 1000 500 / 500 Output: Urine 600 / 600 Other: # Voids 6 1 # Bowel Movements 3 1 Narrative: GENERAL: This is a well-nourished, well-developed patient, in no apparent distress. EYES: Pupils equal round and reactive, no scleral edema or drainage CARDIOVASCULAR: Regular rate and rhythm without murmurs, gallops, or rubs. Diminished pedal pulses bilaterally. RESPIRATORY: Clear to auscultation. Breath sounds equal bilaterally. No wheezes , rales, or rhonchi. GASTROINTESTINAL: Abdomen soft, non-tender, nondistended. Normal active bowel sounds MUSCULOSKELETAL: Right foot bandage clean dry and intact NEURO: Alert & Oriented x4 to person, place, time, situation. Moves all ext x4 Results Procedures completed during hospitalization: right third digit open fracture debridement and irrigation with laceration repair with Dr. Padgett Labs on day of discharge: Labs from last 24 hours 03/19/18 03/19/18 03/18/18 07:00 07:00 20:31 WBC 11.5 H RBC 5.61 H Hgb 14.9 Hct 45.3 MCV 80.8 MCH 26.6 L MCHC 32.9 RDW 15.9 Plt Count 230 MPV 9.7 Neut % (Auto) 87.7 H Lymph % (Auto) 9.2 [place] % (Auto) 2.3 Eos % (Auto) 0.2 Baso % (Auto) 0.6 Neut # (Auto) 10.1 H Lymph # (Auto) 1.1 [place] # (Auto) 0.3 Eos # (Auto) 0.0 Baso # (Auto) 0.1 WBC Differential . Differential Comment Auto diff final Sodium 132 L Potassium 5.1 D Chloride 97 L Carbon Dioxide 22.6 Anion Gap 12 BUN 21 H Creatinine 0.97 Estimated GFR 57 L POC Glucose 390 H Random Glucose 390 H D Calcium 9.1 03/18/18 03/18/18 03/18/18 18:20 18:20 17:02 WBC 15.1 H RBC 5.69 H Hgb 14.9 Hct 45.9 MCV 80.7 MCH 26.2 L MCHC 32.4 RDW 15.7 Plt Count 264 MPV 9.6 Neut % (Auto) Lymph % (Auto) [place] % (Auto) Eos % (Auto) Baso % (Auto) Neut # (Auto) Lymph # (Auto) [place] # (Auto) Eos # (Auto) Baso # (Auto) WBC Differential Differential Comment Sodium 132 L Potassium 3.9 Chloride 96 L Carbon Dioxide 25.7 Anion Gap 10 BUN 11 Creatinine 0.89 Estimated GFR 63 L POC Glucose 291 H Random Glucose 268 H Calcium 9.0 03/18/18 12:41 WBC RBC Hgb Hct MCV MCH MCHC RDW Plt Count MPV Neut % (Auto) Lymph % (Auto) [place] % (Auto) Eos % (Auto) Baso % (Auto) Neut # (Auto) Lymph # (Auto) [place] # (Auto) Eos # (Auto) Baso # (Auto) WBC Differential Differential Comment Sodium Potassium Chloride Carbon Dioxide Anion Gap BUN Creatinine Estimated GFR POC Glucose 337 H Random Glucose Calcium Preliminary micro results at discharge 03/17/18 14:12 Wound Culture - Preliminary Wound - Toe No growth in 24 hours - Impressions ITS Impressions Extremity Arterial Study 03/17/18 00:00 CONCLUSION: Moderately compromised lower extremity circulation bilaterally Foot X-Ray 03/17/18 00:00 CONCLUSION: Deformity of the third toe tuft as described. Aorta w/Runoff CTA 03/19/18 16:09 CONCLUSION: 1. 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 2. There is collateral reconstitution of the external iliac arteries bilaterally. Except for some mild atherosclerotic irregularity in the SFA/ popliteal, the runoff vessels are otherwise patent with 3 vessels bilaterally. 3. (Midline anterior abdominal wall hernia measures 5.7 cm in diameter and only contains fat. This is adjacent to a prior surgical incision 6. With metallic butch in the region of the rectus abdominis aponeurosis. 4. Prior back surgery with multilevel resection of the spinous processes in the lower lumbar and upper sacral spine. Probable bony fusion mass leftward in the posterior elements at L4-5. Patient is status post cholecystectomy. Discharge Plan - Discharge Disposition Patient Disposition: W/Home Health Service - Discharge Condition Condition: Stable - Discharge Order Discharge Orders: Discharge Order (Routine); Ordered 03/19/18 Ordered By: Marily De La Rosa - Physicians Team Attending Provider: Marily De La Rosa Other Providers: Rosy Padgett DPM ; Valerio Bailey MD
[2018-03-19] MEDS: Insulin Detemir Inj 1,000 UNIT/10 ML Vial SQ SCH ×2 (12:11→22:15)
--- NOTE | 2018-03-19 14:07 | P.PNVS ---
Subjective Subjective/Hospital Course: Somewhat atrophic extremities. Patient has no palpable femoral pulses. Distally patient has dorsalis pedis and posterior tibial by Doppler only. Feet are slightly pale; however, there is no acute sign of vascular deficit. 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 In the best case scenario, Leriche syndrome is treated by either aortobifemoral bypass or axillobifemoral bypass. Patient is clearly not a candidate for aortobifemoral bypass in the face of her comorbidities and current status but theoretically would be a candidate for axillobifemoral bypass if necessary. At this point I believe the best course of therapy is to allow the third toe amputation to heal and if patient does have ischemic and necrotic changes of the foot then we may resort to surgery but otherwise we should avoid that because even then this is a significant operation for this unfortunate lady I would like to see patient in about a month in my office and see how she does Objective Vital Signs / I&O: Vital Signs 03/18/18 16:00 03/18/18 18:57 03/18/18 20:00 Temperature 98.0 F 97.6 F Pulse Rate 98 H 101 H 100 H Respiratory Rate 18 18 17 Blood Pressure 188/87 H 141/66 H Pulse Oximetry 95 95 03/18/18 21:30 03/19/18 00:00 03/19/18 00:42 Temperature 97.9 F Pulse Rate 88 Respiratory Rate 16 Blood Pressure 125/64 Pulse Oximetry 94 L 94 L 93 L 03/19/18 03:47 03/19/18 07:51 03/19/18 08:25 Temperature 97.8 F Pulse Rate 96 H 90 Respiratory Rate 17 12 Blood Pressure 158/72 H Pulse Oximetry 97 98 03/19/18 12:00 03/19/18 13:28 Temperature 97.4 F L Pulse Rate 88 85 Respiratory Rate 18 12 Blood Pressure 151/68 H Pulse Oximetry 94 L Intake & Output 03/18/18 03/19/18 03/19/18 18:59 06:59 18:59 Intake Total 1000 / 1000 500 / 500 Output Total 600 / 600 Balance 1000 / 1000 -100 / -100 Weight 122.2 kg Intake: Oral 1000 / 1000 500 / 500 Output: Urine 600 / 600 Other: # Voids 6 1 # Bowel Movements 3 1 Laboratory Results - last 24 hr 03/18/18 03/18/18 03/18/18 17:02 18:20 18:20 WBC 15.1 H RBC 5.69 H Hgb 14.9 Hct 45.9 MCV 80.7 MCH 26.2 L MCHC 32.4 RDW 15.7 Plt Count 264 MPV 9.6 Neut % (Auto) Lymph % (Auto) [place] % (Auto) Eos % (Auto) Baso % (Auto) Neut # (Auto) Lymph # (Auto) [place] # (Auto) Eos # (Auto) Baso # (Auto) WBC Differential Differential Comment Sodium 132 L Potassium 3.9 Chloride 96 L Carbon Dioxide 25.7 Anion Gap 10 BUN 11 Creatinine 0.89 Estimated GFR 63 L POC Glucose 291 H Random Glucose 268 H Calcium 9.0 03/18/18 03/19/18 03/19/18 20:31 07:00 07:00 WBC 11.5 H RBC 5.61 H Hgb 14.9 Hct 45.3 MCV 80.8 MCH 26.6 L MCHC 32.9 RDW 15.9 Plt Count 230 MPV 9.7 Neut % (Auto) 87.7 H Lymph % (Auto) 9.2 [place] % (Auto) 2.3 Eos % (Auto) 0.2 Baso % (Auto) 0.6 Neut # (Auto) 10.1 H Lymph # (Auto) 1.1 [place] # (Auto) 0.3 Eos # (Auto) 0.0 Baso # (Auto) 0.1 WBC Differential . Differential Comment Auto diff final Sodium 132 L Potassium 5.1 D Chloride 97 L Carbon Dioxide 22.6 Anion Gap 12 BUN 21 H Creatinine 0.97 Estimated GFR 57 L POC Glucose 390 H Random Glucose 390 H D Calcium 9.1 03/19/18 03/19/18 11:58 12:01 WBC RBC Hgb Hct MCV MCH MCHC RDW Plt Count MPV Neut % (Auto) Lymph % (Auto) [place] % (Auto) Eos % (Auto) Baso % (Auto) Neut # (Auto) Lymph # (Auto) [place] # (Auto) Eos # (Auto) Baso # (Auto) WBC Differential Differential Comment Sodium Potassium Chloride Carbon Dioxide Anion Gap BUN Creatinine Estimated GFR POC Glucose 591 H* 577 H* Random Glucose Calcium Microbiology 03/17/18 14:12 Acid Fast Bacilli Smear - Final Wound - Toe No acid fast bacilli seen 03/17/18 14:12 Gram Stain - Final Wound - Toe Wound Culture - Preliminary No growth in 48 hours 03/17/18 14:12 Fungal Smear - Final Wound - Toe No fungal elements seen Impressions Extremity Arterial Study 03/17/18 00:00 CONCLUSION: Moderately compromised lower extremity circulation bilaterally Foot X-Ray 03/17/18 00:00 CONCLUSION: Deformity of the third toe tuft as described. Aorta w/Runoff CTA 03/19/18 16:09 CONCLUSION: 1. 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 2. There is collateral reconstitution of the external iliac arteries bilaterally. Except for some mild atherosclerotic irregularity in the SFA/ popliteal, the runoff vessels are otherwise patent with 3 vessels bilaterally. 3. (Midline anterior abdominal wall hernia measures 5.7 cm in diameter and only contains fat. This is adjacent to a prior surgical incision 6. With metallic butch in the region of the rectus abdominis aponeurosis. 4. Prior back surgery with multilevel resection of the spinous processes in the lower lumbar and upper sacral spine. Probable bony fusion mass leftward in the posterior elements at L4-5. Patient is status post cholecystectomy.
--- NOTE | 2018-03-19 14:43 | P.PNPOD ---
Subjective Interval history: s/p right third toe distal toe traumatic amputation. Pt denies any pain. She is hoping for d/c today. She denies any n/v/f/h/c/sob. Physical Exam Vital signs: Vital Signs 03/18/18 16:00 03/18/18 18:57 03/18/18 20:00 Temperature 98.0 F 97.6 F Pulse Rate 98 H 101 H 100 H Respiratory Rate 18 18 17 Blood Pressure 188/87 H 141/66 H Pulse Oximetry 95 95 03/18/18 21:30 03/19/18 00:00 03/19/18 00:42 Temperature 97.9 F Pulse Rate 88 Respiratory Rate 16 Blood Pressure 125/64 Pulse Oximetry 94 L 94 L 93 L 03/19/18 03:47 03/19/18 07:51 03/19/18 08:25 Temperature 97.8 F Pulse Rate 96 H 90 Respiratory Rate 17 12 Blood Pressure 158/72 H Pulse Oximetry 97 98 03/19/18 12:00 03/19/18 13:28 Temperature 97.4 F L Pulse Rate 88 85 Respiratory Rate 18 12 Blood Pressure 151/68 H Pulse Oximetry 94 L Intake & Output 03/18/18 03/19/18 03/19/18 18:59 06:59 18:59 Intake Total 1000 / 1000 500 / 500 Output Total 600 / 600 Balance 1000 / 1000 -100 / -100 Weight 122.2 kg Intake: Oral 1000 / 1000 500 / 500 Output: Urine 600 / 600 Other: # Voids 6 1 # Bowel Movements 3 1 Narrative: Right third digit with all sutures intact, no drainage, bluish discoloration to the the tip of the toe but blanchable. Medications and Allergies Active Medications: Active Medications Albuterol (Duoneb Neb (Prn)) 1 ampul NEB Q2HR NEB PRN PRN Reason: SHORTNESS OF BREATH Last Admin: 03/18/18 00:20 Dose: 1 ampul Albuterol (Duoneb Neb (Anup)) 1 ampul NEB Q6HR WHILE AWAKE NEB ANUP Last Admin: 03/19/18 13:23 Dose: 1 ampul Baclofen (Lioresal) 10 mg PO BID ANUP Last Admin: 03/19/18 10:00 Dose: 10 mg Bupropion HCl (Wellbutrin Sr) 300 mg PO DAILY ANUP Last Admin: 03/19/18 08:10 Dose: 300 mg Carvedilol (Coreg) 6.25 mg PO BID [facility] Last Admin: 03/19/18 08:09 Dose: 6.25 mg Clonidine HCl (Catapres) 0.1 mg PO Q6H PRN PRN Reason: SEE LABEL COMMENTS Last Admin: 03/18/18 17:10 Dose: 0.1 mg Dextrose (D50w Vial) 50 ml IV.PUSH UNSCH PRN PRN Reason: PER HYPOGLYCEMIA PROTOCOL Fluoxetine HCl (Prozac) 40 mg PO DAILY [facility] Last Admin: 03/19/18 08:09 Dose: 40 mg Furosemide (Lasix) 40 mg PO DAILY [facility] Last Admin: 03/19/18 08:10 Dose: 40 mg Gabapentin (Neurontin) 600 mg PO TID [facility] Last Admin: 03/19/18 08:10 Dose: 600 mg Glucagon (Glucagon Inj) 1 mg OTHER PRN PRN PRN Reason: for Hypoglycemia Protocol Sodium Chloride (Ns Inj) 500 mls @ 30 mls/hr IV.SIG .Q10H [facility] Last Admin: 03/17/18 21:29 Dose: Not Given Insulin Aspart (Novolog Insulin Correctional Sugar Inj) 0 unit SQ ACHS [facility]; Protocol Last Admin: 03/19/18 12:40 Dose: 20 unit Insulin Detemir (Levemir Inj) 15 unit SQ BID [facility]; Protocol Last Admin: 03/19/18 12:11 Dose: 15 unit Lactobacillus Acidophilus (Lactinex) 1 tab PO BID [facility] Lactulose (Lactulose Liq) 30 ml PO DAILY PRN PRN Reason: SEVERE CONSITIPATION Losartan Potassium (Cozaar) 100 mg PO DAILY [facility] Last Admin: 03/19/18 08:10 Dose: 100 mg Metformin HCl (Glucophage) 1,000 mg PO BIDPC [facility] Last Admin: 03/18/18 16:59 Dose: 1,000 mg Ondansetron HCl (Zofran Odt) 4 mg PO Q6H PRN PRN Reason: NAUSEA OR VOMITING Potassium Chloride (K-Dur) 20 meq PO BID [facility] Last Admin: 03/19/18 08:09 Dose: 20 meq Sodium Chloride (Ns Flush) 2 ml IV.FLUSH BID [facility] Last Admin: 03/19/18 12:12 Dose: 2 ml Sodium Chloride (Ns Flush) 2 ml IV.FLUSH PRN PRN PRN Reason: FLUSH AFTER USING IV ACCESS Allergies Allergy/AdvReac Type Severity Reaction Status Date / Time azithromycin Allergy Severe Rash Verified 03/17/18 09:18 Fish Containing Products Allergy Severe Anaphylaxis Verified 03/17/18 09:18 iohexol Allergy Severe Hives Verified 03/17/18 09:18 povidone-iodine Allergy Severe Hives Verified 03/17/18 09:18 prochlorperazine Allergy Severe Anxiety Verified 03/17/18 09:18 ketorolac [From Toradol] Allergy Rash Verified 03/17/18 12:36 lorazepam AdvReac Severe OPPOSITE Verified 03/17/18 09:18 EFFECT DYE Allergy Severe Hives Uncoded 03/17/18 09:28 Home Medications Medication Instructions Recorded Confirmed Type aspirin [Aspirin Childrens] 81 mg QAM 03/17/18 03/17/18 History baclofen 10 mg PO BID 03/17/18 03/17/18 History bupropion HCl [Wellbutrin XL] 300 mg PO QAM 03/17/18 03/17/18 History carvedilol 6.25 mg PO BID 03/17/18 03/17/18 History fluoxetine [Prozac] 40 mg PO DAILY 03/17/18 03/17/18 History furosemide 40 mg PO DAILY 03/17/18 03/17/18 History gabapentin 600 mg PO TID 03/17/18 03/17/18 History insulin admin supplies [HumaPen 03/17/18 03/17/18 History Luxura HD] losartan 50 mg PO DAILY 03/17/18 03/17/18 History metformin 1,000 mg PO BID 03/17/18 03/17/18 History potassium chloride 20 meq PO BID 03/17/18 03/17/18 History Results - Labs CBC & Chem 7: 03/19/18 07:00 03/19/18 07:00 Laboratory Results - last 24 hr 03/18/18 03/18/18 03/18/18 17:02 18:20 18:20 WBC 15.1 H RBC 5.69 H Hgb 14.9 Hct 45.9 MCV 80.7 MCH 26.2 L MCHC 32.4 RDW 15.7 Plt Count 264 MPV 9.6 Neut % (Auto) Lymph % (Auto) [place] % (Auto) Eos % (Auto) Baso % (Auto) Neut # (Auto) Lymph # (Auto) [place] # (Auto) Eos # (Auto) Baso # (Auto) WBC Differential Differential Comment Sodium 132 L Potassium 3.9 Chloride 96 L Carbon Dioxide 25.7 Anion Gap 10 BUN 11 Creatinine 0.89 Estimated GFR 63 L POC Glucose 291 H Random Glucose 268 H Calcium 9.0 03/18/18 03/19/18 03/19/18 20:31 07:00 07:00 WBC 11.5 H RBC 5.61 H Hgb 14.9 Hct 45.3 MCV 80.8 MCH 26.6 L MCHC 32.9 RDW 15.9 Plt Count 230 MPV 9.7 Neut % (Auto) 87.7 H Lymph % (Auto) 9.2 [place] % (Auto) 2.3 Eos % (Auto) 0.2 Baso % (Auto) 0.6 Neut # (Auto) 10.1 H Lymph # (Auto) 1.1 [place] # (Auto) 0.3 Eos # (Auto) 0.0 Baso # (Auto) 0.1 WBC Differential . Differential Comment Auto diff final Sodium 132 L Potassium 5.1 D Chloride 97 L Carbon Dioxide 22.6 Anion Gap 12 BUN 21 H Creatinine 0.97 Estimated GFR 57 L POC Glucose 390 H Random Glucose 390 H D Calcium 9.1 03/19/18 03/19/18 11:58 12:01 WBC RBC Hgb Hct MCV MCH MCHC RDW Plt Count MPV Neut % (Auto) Lymph % (Auto) [place] % (Auto) Eos % (Auto) Baso % (Auto) Neut # (Auto) Lymph # (Auto) [place] # (Auto) Eos # (Auto) Baso # (Auto) WBC Differential Differential Comment Sodium Potassium Chloride Carbon Dioxide Anion Gap BUN Creatinine Estimated GFR POC Glucose 591 H* 577 H* Random Glucose Calcium Microbiology 03/17/18 14:12 Wound - Toe Acid Fast Bacilli Smear - Final No acid fast bacilli seen 03/17/18 14:12 Wound - Toe Gram Stain - Final 03/17/18 14:12 Wound - Toe Wound Culture - Preliminary No growth in 48 hours 03/17/18 14:12 Wound - Toe Fungal Smear - Final No fungal elements seen - Imaging Impressions Aorta w/Runoff CTA 03/19/18 16:09 CONCLUSION: 1. 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 2. There is collateral reconstitution of the external iliac arteries bilaterally. Except for some mild atherosclerotic irregularity in the SFA/ popliteal, the runoff vessels are otherwise patent with 3 vessels bilaterally. 3. (Midline anterior abdominal wall hernia measures 5.7 cm in diameter and only contains fat. This is adjacent to a prior surgical incision 6. With metallic butch in the region of the rectus abdominis aponeurosis. 4. Prior back surgery with multilevel resection of the spinous processes in the lower lumbar and upper sacral spine. Probable bony fusion mass leftward in the posterior elements at L4-5. Patient is status post cholecystectomy. - Procedures right third digit open fracture debridement and irrigation with laceration repair with Dr. Padgett Assessment and Plan - Assessment (1) Avulsion of toe Code(s): S91.109A - Unspecified open wound of unspecified toe(s) without damage to nail, initial encounter Status: Acute - Plan - no wound care needed - vascular has no plans for intervention at this time and only recommends intervention if toe does not heal over the next few weeks - ok to d/c from a podiatry standpoint, suggest 7-10 days of oral abx (cipro or bactrim ds) - f/u with in the office in 5-7 days (1) Avulsion of toe Qualifiers: Encounter type: initial encounter Qualified Code(s): S91.109A - Unspecified open wound of unspecified toe(s) without damage to nail, initial encounter
[2018-03-19] MEDS: Lactobacillus Acidophilus/L. Spores Tablet PO SCH ×2 (16:17→22:14)
--- NOTE | 2018-03-19 17:43 | P.PNADD ---
Addendum to Inpatient Note Reason for Addendum: Additional Documentation Additional information: Patient was given prednisone via protocol due to allergy to iodine for CTA aorta with runoff earlier today. Due to the prednisone, patient has elevated blood sugars in the 500s. At this time will increase basal Levemir and short- acting insulin. Discharge will be held for reevaluation in the morning.
[2018-03-20] MEDS: FLUoxetine 20 MG Capsule PO SCH (09:35)
[2018-03-20] MEDS: Lactobacillus Acidophilus/L. Spores Tablet PO SCH (09:35)
[2018-03-20] MEDS: Gabapentin 300 MG Capsule PO SCH ×2 (09:35→12:23)
[2018-03-20] MEDS: Furosemide 40 MG Tablet PO SCH (09:36)
[2018-03-20] MEDS: Carvedilol 6.25 MG Tablet PO SCH (09:36)
[2018-03-20] MEDS: buPROPion 150 MG 12 HR Tablet PO SCH (09:37)
[2018-03-20] MEDS: Insulin NovoLOG Aspart Correctional Sugar Inj SQ SCH ×2 (09:37→12:29)
[2018-03-20] MEDS: Baclofen 10 MG Tablet PO SCH (09:37)
[2018-03-20] MEDS: Insulin Detemir Inj 1,000 UNIT/10 ML Vial SQ SCH (09:38)
--- NOTE | 2018-03-20 10:15 | P.PNIM ---
Subjective Interval history: Follow-up right third digit toe injury, status post I&D, neuropathy, diabetes mellitus, CHF, hypertension and COPD. Patient seen and examined sitting in the chair, denies any pain, foot pain or discomfort, however was not able to feel on his both lower extremities/foot. Blood sugar improved today patient stated blood sugar is better today around 200s. Patient getting breathing treatment, denies any wheezes or shortness of breath. Patient denies any pain, chest pain abdominal pain, nausea, vomiting, diarrhea or constipation. Physical Exam Vital signs: Vital Signs 03/19/18 12:00 03/19/18 13:28 03/19/18 16:00 Temperature 97.4 F L 97.1 F L Pulse Rate 88 85 93 H Respiratory Rate 18 12 17 Blood Pressure 151/68 H 150/71 H Pulse Oximetry 94 L 93 L 03/19/18 19:33 03/19/18 20:00 03/19/18 21:37 Temperature 97.3 F L Pulse Rate 92 H 98 H Respiratory Rate 20 18 Blood Pressure 168/69 H Pulse Oximetry 92 L 95 03/19/18 23:17 03/20/18 00:00 03/20/18 08:00 Temperature 97.1 F L 97.3 F L Pulse Rate 76 80 Respiratory Rate 18 18 Blood Pressure 115/58 L 139/63 Pulse Oximetry 94 L 98 95 03/20/18 08:14 Temperature Pulse Rate 71 Respiratory Rate 20 Blood Pressure Pulse Oximetry Intake & Output 03/19/18 03/20/18 03/20/18 18:59 06:59 18:59 Intake Total 880 / 880 Output Total 1000 / 1000 Balance -120 / -120 Weight 101.1 kg Intake: Oral 880 / 880 Output: Urine 1000 / 1000 Other: # Voids 4 1 Date of Last Bowel Movement 03/18/18 # Bowel Movements 3 1 Narrative: GENERAL: Well-developed, well-nourished, elderly female in no apparent distress SKIN: Warm and dry. HEAD: Atraumatic. Normocephalic. EYES: Pupils equal and round. No scleral icterus. No injection or drainage. ENT: No nasal bleeding or discharge. Mucous membranes pink and moist. NECK: Trachea midline. No JVD. CARDIOVASCULAR: Regular rate and rhythm. RESPIRATORY: No accessory muscle use. Clear to auscultation. Breath sounds equal bilaterally. GASTROINTESTINAL: Abdomen obese soft, non-tender, nondistended. Hepatic and splenic margins not palpable. MUSCULOSKELETAL: Extremities without clubbing, cyanosis, or edema. No obvious deformities. Right foot third toe with bandage clean dry and intact , with Ortho shoe NEUROLOGICAL: Awake and alert. No obvious cranial nerve deficits. Motor grossly within normal limits. Generalized weakness, moving upper extremity 4 out of 5 and considerable weakness on weakness on bilateral lower extremities. Normal speech. PSYCHIATRIC: Appropriate mood and affect; insight and judgment normal. Results - Labs CBC & Chem 7: 03/19/18 07:00 03/19/18 07:00 Laboratory Results - last 24 hr 03/19/18 03/19/18 03/19/18 11:58 12:01 16:31 POC Glucose 591 H* 577 H* 552 H* 03/19/18 03/20/18 22:05 07:53 POC Glucose 436 H 274 H Microbiology 03/17/18 14:12 Wound - Toe Gram Stain - Final 03/17/18 14:12 Wound - Toe Wound Culture - Final No growth in 72 hours (aerobically and anaerobically ) 03/17/18 14:12 Wound - Toe Acid Fast Bacilli Smear - Final No acid fast bacilli seen - Imaging Impressions Aorta w/Runoff CTA 03/19/18 16:09 CONCLUSION: 1. 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 2. There is collateral reconstitution of the external iliac arteries bilaterally. Except for some mild atherosclerotic irregularity in the SFA/ popliteal, the runoff vessels are otherwise patent with 3 vessels bilaterally. 3. (Midline anterior abdominal wall hernia measures 5.7 cm in diameter and only contains fat. This is adjacent to a prior surgical incision 6. With metallic butch in the region of the rectus abdominis aponeurosis. 4. Prior back surgery with multilevel resection of the spinous processes in the lower lumbar and upper sacral spine. Probable bony fusion mass leftward in the posterior elements at L4-5. Patient is status post cholecystectomy. - Procedures right third digit open fracture debridement and irrigation with laceration repair with Dr. Padgett Assessment and Plan - Assessment (1) Open toe fracture Code(s): S92.919B - Unspecified fracture of unspecified toe(s), initial encounter for open fracture Status: Acute (2) Morbid obesity with BMI of 45.0-49.9, adult Code(s): E66.01 - Morbid (severe) obesity due to excess calories; Z68.42 - Body mass index (BMI) 45.0-49.9, adult Status: Chronic (3) Diabetes mellitus type 2 in obese Code(s): E11.69 - Type 2 diabetes mellitus with other specified complication; E66.9 - Obesity, unspecified Status: Chronic - Plan This is a 67 y/o female with DM, CHF, neuropathy, COPD, breast cancer , depression and hypertension presented to the ED after having a right third digit toe injury. Right open third distal phalanx toe fracture S/P operative day #3 right third digit open fracture debridement and irrigation with laceration repair with Dr. 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 Padgett Follow-up with general surgeon in 1 month, Dr. Bailey Diabetes mellitus type II, chronic, uncontrolled likely with neuropathy -Blood sugar fair controlled, improved today, was elevated yesterday likely due to prednisone use -Resume home metformin -Accu-Cheks with sliding scale insulin -Diabetic diet -Continue basal insulin Levemir for better blood sugar control and a sliding scale. -Follow-up with PCP, for blood sugar management COPD, chronicnot in acute exacerbation History of sleep apnea -DuoNeb scheduled and as needed -Bipap At night Hypertension, chronic, uncontrolled -Resume home medications Cozaar and Coreg, -Decrease Cozaar dose 75 mg with hold parameters -Monitor blood pressure Depression, chronic -Resume home medications fluoxetine and Wellbutrin Chronic diastolic CHF, chronic, EF in August 2014 showed 55% -Resume Lasix, Coreg -Watch for fluid overload Tobacco abuse -Encouraged to quit, cessation counseling Morbid obesity with BMI greater than 45 -weight loss counseling. DVT prophylaxis: Lovenox. Code Status: Full code Discussed Condition With: Patient, and nurse Discharge Planning: May discharge patient home today when vital signs and blood sugar stable (1) Open toe fracture Qualifiers: Encounter type: initial encounter Phalanx: distal Fracture alignment: nondisplaced Laterality: right
[2018-03-20 13:08] VITALS: BP 132/59; PULSE 82; RESP 18; TEMP 97.8; O2SAT 97
== END 2018-03-20 16:22 | disposition home health service (06) ==
LOC: NEPE 07:58 → HSDC 09:56 → HSDI 17:41 → N07 18:10 → INTOOBSV 18:38
PROVIDERS: ADMIT Hospitalist; ATTEND Hospitalist